=== PATIENT | female | born 1955 | race Caucasian/White ===

== ENCOUNTER 2017-02-07 14:42 | Emergency (ER) | payer BC ==
--- NOTE | 2017-02-07 17:05 | ED ---
Throat Pain/Nasal Congestion - HPI Summary HPI Summary: 61 male presents to ED with complaints of red/bleeding in right eye that began just [employer]. Patient states she noticed it when she looked in the mirror. States about 45minutes prior to noticing she was using the bathroom and was straining. Patient denies any other symptoms, no eye pain, vision changes, discharge, FB or anything getting in the eye. Patient denies any other complaints at this time. No headache or chest pain. Has never had this before. No known trauma or injury. Is not on blood thinners. PMHx includes HTN that she is medicated for. Does not wear contacts. - History of Current Complaint Chief Complaint: EDEyeProblem Hx Obtained From: Patient Onset/Duration: Sudden Onset - Allergies/Home Medications Allergies/Adverse Reactions: Allergies Allergy/AdvReac Type Severity Reaction Status Date / Time No Known Allergies Allergy Verified 02/07/17 14:45 PMH/Surg Hx/FS Hx/Imm Hx Endocrine/Hematology History: Denies: Hx Diabetes Cardiovascular History: Reports: Hx Hypertension Respiratory History: Denies: Hx Asthma - Cancer History Hx Chemotherapy: No Hx Radiation Therapy: No - Immunization History Immunizations Up to Date: Yes Infectious Disease History: No Infectious Disease History: Denies: Traveled Outside the [place] in Last 30 Days - Family History Known Family History: Positive: None - Social History Alcohol Use: None Substance Use Type: Reports: None Smoking Status (MU): Never Smoked Tobacco Review of Systems Constitutional: Negative Positive: Other - blood in right eye Cardiovascular: Negative Respiratory: Negative Neurological: Negative All Other Systems Reviewed And Are Negative: Yes Physical Exam Vital Signs On Initial Exam: Initial Vitals Temp Pulse Resp BP Pulse Ox 97.7 F 94 16 171/83 96 02/07/17 14:45 02/07/17 14:45 02/07/17 14:45 02/07/17 14:45 02/07/17 14:45 BP noted patient anxious, improved to 138/79 - [place] Coma Scale Coma Scale Total: 15 Diagnostics - Vital Signs Vital Signs Temp Pulse Resp BP Pulse Ox 02/07/17 14:45 97.7 F 94 16 171/83 96 - Laboratory Lab Statement: Any lab studies that have been ordered have been reviewed, and results considered in the medical decision making process. EENT Course/Dx - Diagnoses Provider Diagnoses: Subconjunctival hemorrhage of right eye Discharge - Discharge Plan Condition: Stable Disposition: HOME Patient Education Materials: Subconjunctival Hemorrhage (ED) Referrals: Rozina Broderick NP [Primary Care Provider] - Additional Instructions: Follow up with eye doctor, and PCP. Be sure to have your blood pressure re-checked. Try to avoid increasing internal pressure. Any new or worsening symptoms please seek medical attention promptly.
[2017-02-07 17:13] VITALS: BP 138/79
== END 2017-02-07 17:15 | disposition home or self-care (01) ==
LOC: ED 14:42
DX: H11.31 Conjunctival hemorrhage, right eye (principal); Z86.79 Personal history of other diseases of the circulatory system
CPT/HCPCS: 99281